=== PATIENT | male | born 1985 | race Caucasian/White ===

== ENCOUNTER 2022-11-11 21:12 | Emergency (ER) | payer OTHER ==
[2022-11-11 21:18] VITALS: BP 126/67; PULSE 68; RESP 16; TEMP 98.4; BMI 31.4
[2022-11-11] MEDS ORDERED: KETOROLAC TROMETHAMINE 30 MG/1 ML VIAL IM ONE (22:19)
[2022-11-11] MEDS ORDERED: diazePAM 5 MG TABLET PO ONE (22:19)
[2022-11-11] MEDS ORDERED: ACETAMINOPHEN 500 MG TABLET (FP) PO ONE (22:19)
[2022-11-11] MEDS ORDERED: LIDOCAINE 5% TOPICAL PATCH TP ONE (22:20)
[2022-11-11] MEDS ORDERED: KETOROLAC TROMETHAMINE 30 MG/1 ML VIAL ONE (22:22)
[2022-11-11] MEDS ORDERED: ACETAMINOPHEN 500 MG TABLET (FP) ONE (22:22)
[2022-11-11] MEDS ORDERED: diazePAM 5 MG TABLET ONE (22:23)
[2022-11-12] MEDS ORDERED: LIDOCAINE PATCH REMOVAL MC ONE (22:00)
== END 2022-11-11 23:18 | disposition home or self-care (01) ==
LOC: JERFT 21:12
PROC: 3E0233Z Introduction of Anti-inflammatory into Muscle, Percutaneous Approach (ICD-10-PCS; principal; 2022-11-11)
DX: M54.50 Low back pain, unspecified (principal); X50.9XXA Other and unspecified overexertion or strenuous movements or postures, initial encounter; Y93.89 Activity, other specified; Y92.9 Unspecified place or not applicable
CPT/HCPCS: 99284-25